=== PATIENT | male | born 1975 | race African-American/Black ===

== ENCOUNTER 2017-03-14 05:29 | Day surgery (SDC) | payer OTHER ==
[~2017-03-14] VITALS: Ht 180.3 cm; Wt 74.8 kg
[2017-03-14 05:59] VITALS: BP 135/89
[2017-03-14] MEDS ORDERED: PERCOCET 5/31 TABLET PO (08:46)
[2017-03-14 09:23] VITALS: BP 130/70
[2017-03-14 10:02] VITALS: BP 120/80
== END 2017-03-14 10:20 | disposition home or self-care (01) ==
LOC: SDC 05:29
PROC: 0YU60JZ Supplement Left Inguinal Region with Synthetic Substitute, Open Approach (ICD-10-PCS; principal; 2017-03-14)
DX: K40.90 Unilateral inguinal hernia, without obstruction or gangrene, not specified as recurrent (principal); Z87.891 Personal history of nicotine dependence
CPT/HCPCS: C1781; J0131; J0690; J1885; J2250; J2405; J3010